=== PATIENT | female | born 1980 | race Caucasian/White ===

== ENCOUNTER 2018-05-17 20:53 | Emergency (ER) | payer OTHER, MEDICAID ==
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
[2018-05-17] MEDS ORDERED: NS 1,000 ML IV ONE (22:01)
[2018-05-17] MEDS ORDERED: HYDROmorphONE/DILAUDID 2 MG/ML INJ IVP ONE (22:01)
[2018-05-17] MEDS ORDERED: PROMETHAZINE HCL 25 MG/ML INJ IVP ONE (22:05)
[2018-05-17 22:09] LABS: PLATELET COUNT 224 10^3/uL (150-400)
[2018-05-17 22:17] LABS: INR 1.01 (0.83-1.16); PROTIME(PATIENT) 13.5 SEC (12.0-15.0)
[2018-05-17] MEDS ORDERED: IOPAMIDOL (ISOVUE-300) 100 ML BTL ONE (22:25)
[2018-05-17] MEDS ORDERED: HYDROCOD/APAP 5/325 PREPACK#6 BTL TAKEHOME ONE (23:11)
[2018-05-17 23:26] VITALS: BP 105/75
== END 2018-05-17 23:25 | disposition home or self-care (01) ==
DX: R10.0 Acute abdomen (principal); R93.5 Abnormal findings on diagnostic imaging of other abdominal regions, including retroperitoneum; N39.0 Urinary tract infection, site not specified; V49.49XA Driver injured in collision with other motor vehicles in traffic accident, initial encounter; Y92.410 Unspecified street and highway as the place of occurrence of the external cause; Q42.3 Congenital absence, atresia and stenosis of anus without fistula; Z97.5 Presence of (intrauterine) contraceptive device
CPT/HCPCS: 96365; J0696; J1170; J2550; Q9967